=== PATIENT | female | born 1945 | race Caucasian/White ===

== ENCOUNTER 2016-12-15 19:10 | Emergency (ER) | payer MEDICARE ==
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
[2016-12-15] MEDS ORDERED: CEPHALEXIN 250 MG CAPSULE ONE (20:35)
[2016-12-15] MEDS: DIPH,PERTUSS(ACELL),TET VAC/PF 0.5 ML DISP.SYRIN IM ONE (21:30)
[2016-12-15] MEDS: CEPHALEXIN 250 MG CAPSULE PO ONE (21:59)
[2016-12-15 23:20] VITALS: BP 179/97
== END 2016-12-15 21:50 | disposition home or self-care (01) ==
LOC: ED 19:10
DX: T25.232A Burn of second degree of left toe(s) (nail), initial encounter (principal); B96.89 Other specified bacterial agents as the cause of diseases classified elsewhere; X08.8XXA Exposure to other specified smoke, fire and flames, initial encounter; Y93.9 Activity, unspecified; Y99.9 Unspecified external cause status
CPT/HCPCS: 90471; 90715; 99283

== ENCOUNTER 2017-06-04 19:04 | Emergency (ER) | payer MEDICARE ==
--- NOTE | 2017-06-04 19:32 | ED Physician Documentation ---
General Adult - HISTORIAN Historian: patient - HPI Stated Complaint: Back pain/Right wrist pain Chief Complaint: Lower Extremity Injury Onset: hours Timing: still present Modifying Factors: worse with twisting and bending Further Comments: yes - ROS CONST: no problems. denies: fever, chills - PAST HX Past History: none Other History: none Immunizations: referred to PCP Allergies/Adverse Reactions: Allergies Allergy/AdvReac Type Severity Reaction Status Date / Time codeine [Codeine] AdvReac Intermediate vomit Verified 06/04/17 19:24 Home Medications: Ambulatory Orders Medication Instructions Recorded Chlorthalidone [Thalitone] 25 mg PO DAILY 10/22/14 amLODIPine BESYLATE [Norvasc] 10 mg PO DAILY 10/22/14 Tramadol HCl [Ultram] 50 mg PO Q6 PRN #20 tablet 12/15/16 Tramadol HCl [Ultram] 50 mg PO Q4 PRN #20 tablet 06/04/17 - SOCIAL HX Smoking History: greater than 1 pack/day (2-2 1/2) Alcohol Use: none Drug Use: none - FAMILY HX Family History: No - VITAL SIGNS Vital Signs: Vital Signs Temp Pulse Resp BP Pulse Ox 98.6 F 74 18 167/73 96 06/04/17 19:05 06/04/17 19:05 06/04/17 19:05 06/04/17 19:05 06/04/17 19:05 - REVIEWED ASSESSMENTS Nursing Assessment Reviewed: Yes Vitals Reviewed: Yes General Adult Physical Exam - PHYSICAL EXAM GENERAL APPEARANCE: mild distress NECK: normal inspection, thyroid normal, supple RESPIRATORY: no resp distress, chest non-tender, rales (few scattered). No: wheezes, rhonchi CVS: reg rate & rhythm, heart sounds normal, equal pulses, no murmur, no gallop ABDOMEN: soft, no organomegaly, normal bowel sounds, no abdominal bruit, no distension, non-tender BACK: other (tenderness over the right perispinal area at about T5,6 level) SKIN: warm/dry, normal color NEURO: oriented X3, CN's nml as tested, motor nml Discharge Clincal Impression: Strain, back Qualifiers: Encounter type: initial encounter Qualified Code(s): S39.012A - Strain of muscle, fascia and tendon of lower back, initial encounter Prescriptions: Tramadol HCl [Ultram] 50 mg PO Q4 PRN #20 tablet PRN Reason: Pain Referrals: Primary Doctor,No [Primary Care Provider] - 2 Days Additional Instructions: Use a warm compress to the back area. Take Tramadol as needed for pain, take with food. It may cause some drowsiness. Condition: Stable Disposition: 01 HOME, SELF-CARE Decision to Admit: NO Date of Decison to Admit: 06/04/17 Decision Time: 19:39
[2017-06-04 19:40] VITALS: BP 161/93
== END 2017-06-04 19:39 | disposition home or self-care (01) ==
LOC: ED 19:04
DX: S39.012A Strain of muscle, fascia and tendon of lower back, initial encounter (principal); W19.XXXA Unspecified fall, initial encounter; Y93.9 Activity, unspecified; Y99.9 Unspecified external cause status
CPT/HCPCS: 99283

== ENCOUNTER 2018-08-21 13:26 | Emergency (ER) | payer MEDICARE ==
--- NOTE | 2018-08-21 13:49 | ED Physician Documentation ---
General Adult - HISTORIAN Historian: patient - HPI Stated Complaint: n/v and abdominal pain Chief Complaint: General Adult Onset: days ago Timing: still present Severity: moderate Further Comments: yes (Pt is a 73 yo female with abd pain, n/v. Pt felt feverish 2 days ago. She also had an episode of diarrhea, but since then has not been eating and has not had another bm x 2 days. Pt says also that she has had little urine output.) - ROS CONST: weakness, other (malaise) EYES/ENT: none CVS/RESP: none GI/: abdominal pain, problems urinating, nausea, diarrhea - PAST HX Past History: other (chronic pain, HTN) Surgeries/Procedures: other (appendectomy, ortho surgery) Allergies/Adverse Reactions: Allergies Allergy/AdvReac Type Severity Reaction Status Date / Time codeine [Codeine] AdvReac Intermediate vomit Verified 08/21/18 13:45 - SOCIAL HX Smoking History: quit greater than 1 year - FAMILY HX Family History: No - VITAL SIGNS Vital Signs: Vital Signs Temp Pulse Resp BP Pulse Ox 97.3 F L 66 16 202/95 95 08/21/18 13:30 08/21/18 13:30 08/21/18 13:30 08/21/18 13:30 08/21/18 13:30 - REVIEWED ASSESSMENTS Nursing Assessment Reviewed: Yes Vitals Reviewed: Yes Progress - Progress Progress: x-ray abdomen: Air filled loops of large and small bowel - no gross abnormal dilation. NS 1 L IVF zofran 4 mg IV sx improved/resolved after IVF General Adult Physical Exam - PHYSICAL EXAM GENERAL APPEARANCE: mild distress EENT: eye inspection normal, pharynx normal NECK: normal inspection, supple RESPIRATORY: no resp distress, chest non-tender, breath sounds normal CVS: reg rate & rhythm, heart sounds normal, equal pulses ABDOMEN: soft, no organomegaly, normal bowel sounds BACK: normal inspection, no CVA tenderness SKIN: warm/dry, normal color EXTREMITIES: non-tender, normal range of motion, no evidence of injury, no edema NEURO: oriented X3, motor nml, sensation nml Discharge Clincal Impression: abdominal pain, resolved, mild dehydration Referrals: Sihva Will MD [Primary Care Provider] - Condition: Good Disposition: 01 HOME, SELF-CARE Decision to Admit: NO Decision Time: 16:11
[2018-08-21] MEDS ORDERED: ONDANSETRON HCL/PF 4 MG/ 2ML VIAL IVP ONE (13:56)
[2018-08-21] MEDS ORDERED: 0.9 % SODIUM CHLORIDE 1,000 ML IV ONE (13:56)
[2018-08-21 14:37] LABS: EOSINOPHILS % 2.9 % (0.0-6.8); MEAN CORPUSCULAR HEMOGLOBIN 28.9 pg (28.0-34.0); MONOCYTES % 14.7 % (0.0-11.0)
[2018-08-21 14:38] LABS: BASOPHILS % 0.7 (0.0-1.5); NEUTROPHILS # 2.2 # k/uL (1.4-7.7)
[2018-08-21 14:42] LABS: eGFR (Non-African) > 60
--- NOTE | 2018-08-21 15:28 | Diagnostic Imaging Report ---
ESTRELLITA SHEETS [facility] [id number] [facility] [address] [place] [address]. [id number] Report Submission Date: Aug 21, 2018 2:40:30 PM LOANS OFFICER Patient Study Name: JORGE DAIGLE Date: Aug 21, 2018 2:12:45 PM LOANS OFFICER Modality Type: DX Gender: F Description: ABDOMEN 1VIEW : 47 Institution: [facility] Physician: ESTRELLITA SHEETS Examination: Obstruction series History: ABD PAIN SINCE SATURDAY Findings: 2 views obtained of the abdomen. Air throughout the large and small bowel. No suspicious calcification projecting over the renal fossa or the lower pelvic region. Lumbar curvature to the right. Impression: Air filled loops of large and small bowel - no gross abnormal dilation. Electronically signed on Aug 21, 2018 2:40:30 PM LOANS OFFICER by: Ja EHNDERSON
[2018-08-21 16:18] VITALS: BP 159/64
[2018-08-21 16:26] LABS: APPEARANCE,URINE CLEAR (CLEAR); COLOR,URINE YELLOW (YELLOW); OCCULT BLOOD,URINE NEGATIVE (NEGATIVE); UROBILINOGEN URINE 0.2 Eu (0.2-1.0)
== END 2018-08-21 16:20 | disposition home or self-care (01) ==
LOC: ED 13:26
DX: E86.0 Dehydration (principal); R10.9 Unspecified abdominal pain
CPT/HCPCS: 36415; 74018; 80053; 81002; 83690; 83880; 85025; 87400; 96360; 96374; 99283; 99284; J2405; J7030; S1016